=== PATIENT | female | born 1950 | race Caucasian/White ===

== ENCOUNTER → 2017-02-01 | Outpatient (CLI) | payer OTHER ==
[~2017-02-01] MED LIST: ASPI81TA28 PO; FAMO40TA6 PO; PARO1TAB27 PO; SODI1PST DT
--- NOTE | 2017-02-02 12:10 | MAMMOGRAPHY REPORT ---
BILATERAL DIGITAL SCREENING MAMMOGRAM TOMOSYNTHESIS WITH CAD: 02/01/2017 CLINICAL HISTORY: Routine screening. Patient has no complaints. TECHNIQUE: Breast tomosynthesis in addition to standard 2D mammography was performed. Current study was also evaluated with a Computer Aided Detection (CAD) system. COMPARISON: Comparison is made to exams dated: 01/01/2016 mammogram, 11/06/2014 mammogram, 10/03/2013 m ammogram, 04/12/2012 mammogram, 10/27/2010 mammogram - [facility], and 01/08/2008. BREAST COMPOSITION: There are scattered areas of fibroglandular density in both breasts. FINDINGS: There is evidence of prior bilateral breast surgery. Stable intramammary lymph node in the left upper outer quadrant. Stable benign-appearing calcifications and punctate densities in the rig ht breast. No new suspicious mass, architectural distortion or cluster of microcalcifications is see n. IMPRESSION: ACR BI-RADS CATEGORY 1: NEGATIVE There is no mammographic evidence of malignancy. A 1 year screening mammogram is recommended. The pa tient will receive written notification of the results. Approximately 10% of breast cancers are not detected with mammography. A negative mammographic report should not delay biopsy if a clinically suggestive mass is present. Atiya Johansen M.D. ay/:02/01/2017 16:19:33 Agricultural Commodities Inspector: Yudelka JOHN)(M), [facility] letter sent: Normal 1/2 BI-RADS Code: ACR BI-RADS Category 1: Negative
== END | disposition home or self-care (01) ==
LOC: C.MAMM 15:26
PROVIDERS: ATTEND Nurse Practitioner Obstetrics & Gynecology
DX: Z12.31 Encounter for screening mammogram for malignant neoplasm of breast (principal)

== ENCOUNTER → 2017-08-22 | Outpatient (CLI) | payer OTHER ==
[~2017-08-22] MED LIST changes: +ALBU2SYP9; -ASPI81TA28 PO; +CALC500C70 PO; -FAMO40TA6 PO; +FLVHFA110 INH; +METO25TA3 PO; +SPRIN/30 INH; +VNTHFA/IN INH; +WARF2.5T8 PO; +WARF5TAB7 PO
[2017-08-22 15:29] LABS: BASO % 0.4 %; BASO ABS # 0.02 K/uL (0-0.2); EOS % 6.1 %; EOS ABS # 0.32 K/uL (0-0.5); HEMATOCRIT 39.5 % (37-47); HEMOGLOBIN 13.5 g/dL (12.0-16.0); IG# 0.01 K/uL (0.00-0.02); LYMPH ABS # 0.42 K/uL (1.2-3.4); MEAN CELL VOLUME 87.4 fL (80-100); MEAN CORPUSCULAR HEMOGLOBIN 29.9 pg (25-34); MEAN CORPUSCULAR HGB CONC 34.2 g/dl (32-36); MEAN PLATELET VOLUME 8.4 fL (7.4-10.4); MONO % 12.3 %; MONO ABS # 0.65 K/uL (0.11-0.59); NEUT ABS # 3.86 K/uL (1.4-6.5); PLATELET COUNT 179 K/uL (130-400); RED CELL DISTRIBUTION WIDTH SD 44.3 fL (36.4-46.3); WHITE BLOOD COUNT 5.28 K/uL (4.8-10.8)
[2017-08-22 15:54] LABS: ALBUMIN 3.5 gm/dl (3.4-5.0); ALT/SGPT 20 U/L (12-78); AST/SGOT 13 U/L (15-37); BLOOD UREA NITROGEN 8 mg/dl (7-18); CALCIUM 8.7 mg/dl (8.5-10.1); CARBON DIOXIDE 26 mmol/L (21-32); CREATININE 0.73 mg/dl (0.60-1.20); GLUCOSE 104 mg/dl (70-99); POTASSIUM 3.6 mmol/L (3.5-5.1); SODIUM 135 mmol/L (136-145)
[2017-08-22 15:56] LABS: ALKALINE PHOSPHATASE 76 U/L (45-117); TOTAL PROTEIN 7.1 gm/dl (6.4-8.2)
== END | disposition home or self-care (01) ==
LOC: C.LAB 13:45
PROVIDERS: ATTEND Physician Assistant
DX: R19.7 Diarrhea, unspecified (principal)

== ENCOUNTER → 2017-10-10 | Outpatient (CLI) | payer OTHER ==
[~2017-10-10] MED LIST changes: -ALBU2SYP9; -SODI1PST DT
[2017-10-10 15:13] VITALS: BP 112/65; PULSE 61; TEMP 36.9; O2SAT 98
--- NOTE | 2017-10-10 16:52 | Radiation Oncology Follow-Up ---
Radiation Oncology Follow-Up Date of Visit Oct 10, 2017. 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 She received 4500 cGy of external beam therapy. She received 3 HDR treatments at 400 cGy each. Last Edited By: Tiffany Isidro on Sep 13, 2017 16:41 History of Present Illness Ms. Jacobs presented with postmenopausal bleeding. Her verification engineer is Dr. Kostas Snyder. The patient was on Coumadin for atrial fibrillation. On 04/21/2017 patient underwent an ultrasound. The uterus measured 6.8 x 4.0 x 4.3 cm with a 1.7 cm thickened endometrium. Ovaries could not be visualized. Subsequent pelvic exam showed vagina/vulvar without lesions, the cervix was intact without lesions. The uterus was elsie-flexed and small with no adnexal masses appreciated. Patient was scheduled for fractional dilatation and curettage, diagnostic hysteroscopy. This revealed a grade 1-2 endometrial adenocarcinoma. Patient was subsequently seen by Dr. Amish Tijerina a gynecologic oncologist with the [facility]. His examination was also unremarkable with no adnexal masses palpable. He discussed treatment options with the patient and they proceeded to schedule a robotic-assisted laparoscopic hysterectomy with lymphadenectomy. Prior to the surgery patient underwent a CT scan of the abdomen and pelvis on 06/12/2017. There was no evidence of metastatic disease within the abdomen or pelvis identified. On June 15 patient underwent the surgical procedure. The uterus measured 56 g. Examination revealed an endometrial endometrioid adenocarcinoma with focal mucinous differentiation, FIGO grade 2. The tumor measured 2.5 cm. There was myometrial invasion present of 12 mm into an endometrial thickness of 20 mm. There was evidence of lymphovascular invasion which was extensive. Microsatellite instability testing by IHC revealed loss of nuclear expression of mL H1 and PMS to. The fallopian tubes were unremarkable. A benign left ovary with calcified nodule and benign right ovary. Unremarkable parametrial tissues were noted. 5) pelvic nodes were excised and were negative for metastatic carcinoma. 7 left pelvic nodes were excised. 6 of the nodes were negative. One left pelvic lymph node showed isolated tumor cells comprised of scattered histiocytoid appearing cells that are AE1/AE3 positive. The patient was therefore staged as pT1b pNo(i+), FIGO stage IB. Patient is recovering well from her surgery. She is scheduled to return to see her surgeon on August 05. We were asked to see the patient to evaluate her for the role of adjuvant radiation. She completed radiation therapy September 05 2017. She received 4500 cGy external beam radiation therapy. She also received 3 HDR treatments 400 cGy each. Interim History Over the past month she has had improvement in the issues that she was having with frequent loose bowel movements. Bowel movements are regular. At times she can have some urgency. She continues Metamucil. She also intermittently will use Imodium. She continues to stay away from milk products. She is noted swelling in the lower portion of the abdomen and top of the mons since completion of treatment. She also feels there may be some swelling in the upper inner portion of her thighs. She tried using her treadmill which seemed to make things worse. She has had some ankle swelling. She has occasional vaginal drainage. This is minimal. There is been no bleeding. There is some urgency of urination. There is some mild incontinence. She has a strong family history of colon cancer. She is scheduled for a recheck colonoscopy in December. Due to the family history she will also be seeing a barrel polisher in [place] when she has a follow-up appointment with Dr. Tijerina. Allergies Coded Allergies: Nickel (Verified Allergy, Unknown, SKIN REDNESS, 08/25/17) Statins (Verified Adverse Reaction, Severe, tendonitis, 08/25/17) Home Medications Scheduled Calcium/Vitamin D (Os-Jordan 500 Plus D), 1 TAB PO DAILY Fluticasone Propionate (Flovent Hfa), 2 PUFFS INH BID Metoprolol Succ (Toprol Xl) (Toprol-Xl), 12.5 MG PO BID Tiotropium G[place]am (Spiriva Handihaler), 2 PUFFS INH DAILY Warfarin Sod (Jantoven), 5 MG PO 3XWK Warfarin Sod (Jantoven), 2.5 MG PO 4XWK Scheduled PRN Albuterol Hfa (Ventolin Hfa), 2-4 PUFFS INH Q6H PRN for SOB/Wheezing Review of Systems Gastrointestinal: Symptoms: WNL, Diarrhea GI Comments: Diarrhea from colitis - having colonoscopy 12/2017 Oral: Symptoms: Scant Saliva/Dry Mouth Respiratory: Symptoms: WNL Urinary: Symptoms: WNL Comments: Urge/Stress Incontinence Skin: Symptoms: No Problems Physical Exam Vital Signs Date Time Temp Pulse Resp B/P (MAP) Pulse Ox O2 Delivery O2 Flow Rate FiO2 10/10/17 15:13 36.9 61 16 112/65 98 Fatigue: None General Appearance: no apparent distress Eyes: normal inspection, EOMI ENT: normal ENT inspection, hearing grossly normal Respiratory/Chest: lungs clear, no respiratory distress, no accessory muscle use Cardiovascular: regular rate, rhythm, no gallop, no murmur Abdomen: non tender, soft, no organomegaly, + pertinent finding (Minimal swelling noted in the lower portion of the abdomen) Genitourinary - Female: external genitalia normal, + pertinent finding ( Postradiation changes at the apex of the vagina. Small amount of friable tissue. There are no visible or palpable masses at the apex. No masses on bimanual examination.) Extremities: + pertinent finding (There is mild edema noted at the ankles.) Neurologic/Psychiatric: no motor/sensory deficits, alert, normal mood/affect Skin: warm/dry Pain Management Patient Reports Pain: No Pain Management Plan She denies pain therefore requires no pain management. Laboratory Laboratory Results: not applicable Pathology Pathology Results: were reviewed, and pertinent findings noted in HPI Imaging Imaging Studies: were reviewed, and pertinent findings noted in HPI Assessment & Plan Plan: Patient may be developing early lymphedema. Will refer her to the lymphedema clinic. She will continue follow-up with the oncologic surgeon in [place]. We discussed use of the vaginal dilator. Because of the friable tissue I have asked her to hold on using the dilator for 2 more weeks. She will then use this twice weekly for 20 minutes. We discussed that many of the symptoms that she is having are posttreatment symptoms. The should steadily improve over time. She can continue the Metamucil and Imodium for her bowels. She was instructed to do Kegel exercises for the small amount of urinary incontinence. She stated that the gynecologic oncologist has plan to recheck scanning in the future at their office. Today we completed a cancer survivorship care plan. A copy of the document was given to the patient. She was also given a survivorship booklet. We asked her to return to our office in 6 months. She may call if she has any questions or concerns in the interim. Total Time In Follow-Up I spent 20 minutes speaking to the patient in performing examination. I spent 20 minutes reviewing information, preparing the survivorship document, and completing this note. Copy To Amish Tijerina M.D.; Emely Yun, DO
== END | disposition home or self-care (01) ==
LOC: C.ONC 14:43
PROVIDERS: ATTEND Physician Assistant Medical
DX: Z08 Encounter for follow-up examination after completed treatment for malignant neoplasm (principal); Z92.3 Personal history of irradiation; Z85.42 Personal history of malignant neoplasm of other parts of uterus

== ENCOUNTER → 2017-11-08 | Outpatient (CLI) | payer OTHER ==
[~2017-11-08] MED LIST changes: -PARO1TAB27 PO
== END | disposition home or self-care (01) ==
LOC: C.LABPBG 09:16
PROVIDERS: ATTEND Internal Medicine Clinical Cardiac Electrophysiology
DX: E78.00 Pure hypercholesterolemia, unspecified (principal)